=== PATIENT | female | born 1985 | race American Indian/Alaskan Native ===

== ENCOUNTER 2019-04-19 22:38 | Emergency (ER) | payer MEDICAID, OTHER ==
[2019-04-19 23:21] VITALS: BP 154/96
[2019-04-19] MEDS ORDERED: ASPIRIN PO ONE (23:22)
[2019-04-19 23:59] LABS: Basophils # (Auto) 0.1 K/mm3 (0.0-0.1); Basophils % (Auto) 0.4 % (0.0-1.8); Eosinophils # (Auto) 0.2 K/mm3 (0.0-0.4); Eosinophils % (Auto) 0.8 % (0.0-4.3); Hematocrit 37.9 % (30.3-42.9); Hemoglobin 12.1 gm/dl (10.1-14.3); Lymphocytes # (Auto) 1.8 K/mm3 (1.2-5.4); Lymphocytes % (Auto) 9.5 % (13.4-35.0); Mean Corpuscular HGB Conc 32 % (30-34); Mean Corpuscular Volume 74 fl (79-97); Monocytes # (Auto) 0.9 K/mm3 (0.0-0.8); Monocytes % (Auto) 4.5 % (0.0-7.3); Platelet Count 330 K/mm3 (140-440); Red Blood Count 5.15 M/mm3 (3.65-5.03)
[2019-04-20] MEDS ORDERED: TORADOL IV ONE (00:01)
[2019-04-20] MEDS ORDERED: DECADRON IV ONE (00:01)
[2019-04-20 00:17] LABS: BUN/Creatinine Ratio 16; Blood Urea Nitrogen 8 mg/dL (7-17); Hemolysis Index 1
[2019-04-20] MEDS ORDERED: K-DUR PO ONE (00:33)
--- NOTE | 2019-04-20 01:07 | XRay Report ---
CHEST 1 VIEW INDICATION: MAIN: Chest Pain 2 days. COMPARISON: None FINDINGS: Support devices: None. Heart: Within normal limits. Lungs/Pleura: No acute air space or interstitial disease. Additional findings: None. IMPRESSION: 1. No acute findings. Signer Name: Austin Subramanian MD Signed: 04/20/2019 1:03 AM Workstation Name: [id number]
[2019-04-20 02:21] LABS: Bilirubin,Urine NEG (Negative); Blood,Urine NEG (Negative); Color,Urine Yellow (Yellow); HCG Qualitative,Urine Negative (Negative); Mucus,Urine 1+ /HPF; Protein,Urine <15 mg/dL mg/dL (Negative); Urobilinogen,Urine < 2.0 mg/dL (<2.0)
--- NOTE | 2019-04-20 03:26 | Emergency Department Report ---
ED Back Pain/Injury HPI - General Chief Complaint: Extremity Injury, Lower Stated Complaint: LEG PAIN/NECK SWELLING Time Seen by Provider: 04/19/19 23:40 Source: patient Limitations: No Limitations - History of Present Illness MD Complaint: back pain, other (left lower leg pain, tingling and numbness) -: Sudden, week(s) (1) Similar Symptoms Previously: No Place: home Radiation: left leg Severity scale (0 -10): 8 Quality: burning, sharp, aching, tingling Consistency: constant Improves With: none Worsens With: none, movement, walking Context: unknown Associated Symptoms: denies other symptoms. denies: confusion, weakness, chest pain, numbness, difficulty walking, cough, difficulty urinating, diaphoresis, incontinence, fever/chills, constipation, headaches, loss of appetite, malaise, nausea/vomiting, rash, seizure, shortness of breath, syncope, other - Related Data Home Medications Medication Instructions Recorded Confirmed Last Taken valACYclovir [Valtrex] 500 mg PO TID 09/17/13 09/17/13 Unknown Previous Rx's Medication Instructions Recorded Last Taken Type HYDROcodone/APAP 5-325 [[place] 1 each PO Q6HR PRN #14 tablet 09/18/13 Unknown Rx 5-325 mg TAB] Ibuprofen [Motrin] 800 mg PO TID PRN #20 tablet 09/18/13 Unknown Rx Ibuprofen [Motrin 800 MG tab] 800 mg PO Q8H #21 tablet 08/18/14 Unknown Rx Oxycodone HCl/Acetaminophen 1 each PO Q6HR PRN #16 tablet 08/18/14 Unknown Rx [Percocet 10-325 mg] Naproxen [Naprosyn] 500 mg PO Q12H #20 tablet 04/20/19 Unknown Rx Potassium Bicarb/Citrate [Klor-Con] 25 meq PO QDAY #15 tablet.eff 04/20/19 Unknown Rx tiZANidine [Zanaflex 4mg TAB] 4 mg PO Q8H PRN #21 tablet 04/20/19 Unknown Rx Allergies Allergy/AdvReac Type Severity Reaction Status Date / Time codeine Allergy Itching Verified 08/18/14 15:36 ED Review of Systems ROS: Stated complaint: LEG PAIN/NECK SWELLING Other details as noted in HPI Constitutional: denies: chills, fever Eyes: denies: eye pain, eye discharge, vision change ENT: denies: ear pain, throat pain Respiratory: denies: cough, shortness of breath, wheezing Cardiovascular: denies: chest pain, palpitations Endocrine: no symptoms reported Gastrointestinal: denies: abdominal pain, nausea, diarrhea Genitourinary: denies: urgency, dysuria, discharge Musculoskeletal: back pain, arthralgia (left leg). denies: joint swelling Skin: denies: rash, lesions Neurological: denies: headache, weakness, paresthesias Psychiatric: denies: anxiety, depression Hematological/Lymphatic: denies: easy bleeding, easy bruising ED Past Medical Hx - Past Medical History Previous Medical History?: Yes Hx Hypertension: Yes Additional medical history: Genital Herpes. Fibroids - Surgical History Past Surgical History?: No Additional Surgical History: c section - Social History Smoking Status: Current Every Day Smoker Substance Use Type: None - Medications Home Medications: Home Medications Medication Instructions Recorded Confirmed Last Taken Type valACYclovir [Valtrex] 500 mg PO TID 09/17/13 09/17/13 Unknown History HYDROcodone/APAP 5-325 [[place] 1 each PO Q6HR PRN #14 tablet 09/18/13 Unknown Rx 5-325 mg TAB] Ibuprofen [Motrin] 800 mg PO TID PRN #20 tablet 09/18/13 Unknown Rx Ibuprofen [Motrin 800 MG tab] 800 mg PO Q8H #21 tablet 08/18/14 Unknown Rx Oxycodone HCl/Acetaminophen 1 each PO Q6HR PRN #16 tablet 08/18/14 Unknown Rx [Percocet 10-325 mg] Naproxen [Naprosyn] 500 mg PO Q12H #20 tablet 04/20/19 Unknown Rx Potassium Bicarb/Citrate [Klor-Con] 25 meq PO QDAY #15 tablet.eff 04/20/19 Unknown Rx tiZANidine [Zanaflex 4mg TAB] 4 mg PO Q8H PRN #21 tablet 04/20/19 Unknown Rx ED Physical Exam - General Limitations: No Limitations General appearance: alert, in no apparent distress - Head Head exam: Present: atraumatic, normocephalic, normal inspection - Eye Eye exam: Present: normal appearance, PERRL, EOMI Pupils: Present: normal accommodation - ENT ENT exam: Present: normal exam, normal orophraynx, mucous membranes moist, TM's normal bilaterally, normal external ear exam - Neck Neck exam: Present: normal inspection, full ROM. Absent: tenderness, lymphadenopathy - Respiratory Respiratory exam: Present: normal lung sounds bilaterally. Absent: respiratory distress, wheezes, rales, chest wall tenderness, accessory muscle use, decreased breath sounds - Cardiovascular Cardiovascular Exam: Present: normal rhythm, tachycardia, normal heart sounds. Absent: systolic murmur, diastolic murmur, rubs, gallop - GI/Abdominal GI/Abdominal exam: Present: soft, normal bowel sounds. Absent: tenderness, guarding, hyperactive bowel sounds, hypoactive bowel sounds, organomegaly - Rectal Rectal exam: Present: deferred - Extremities Exam Extremities exam: Present: normal inspection, tenderness (left lower leg), normal capillary refill. Absent: pedal edema, joint swelling, calf tenderness - Back Exam Back exam: Present: normal inspection, full ROM, tenderness (palpaple lumbosacral paraspinal musculoskeletal tenderness), muscle spasm, paraspinal tenderness. Absent: CVA tenderness (R), CVA tenderness (L), vertebral tenderness - Neurological Exam Neurological exam: Present: alert, oriented X3, CN II-XII intact, normal gait, reflexes normal - Psychiatric Psychiatric exam: Present: normal affect, normal mood - Skin Skin exam: Present: warm, dry, intact, normal color. Absent: rash ED Course Vital Signs 04/19/19 23:18 Temperature 99.1 F Pulse Rate 103 H Respiratory 20 Rate Blood Pressure 154/96 O2 Sat by Pulse 98 Oximetry - Reevaluation(s) Reevaluation #1: 04/20/19 03:24 This is a 33-year-old [place] female with a history of chronic low back pain that radiates to the left leg. In the ED, patient is alert and oriented 3, anxious under selected tachycardic and not in any distress. Labs were drawn and patient was treated for pain in the ED. On reevaluation, patient's pain is well controlled with medications. Lab test results were reviewed and showed acute leukocytoses of 19,500, and hypokalemia of 2.9 mmol per liter. Chest x-ray shows no acute cardiopulmonary abnormalities. Other lab test results are nonactionable. The patient's etiology for the leukocytosis is unknown but complaining her previous visits in this hospital, this patient usually has leukocytoses from 2014 visits, which was 12,500 at the time. She has not visited this ED or hospital for the last 5 years. Patient complained upon arrival to the hospitalist low back pain that radiates to the left leg. PT allergic the leukocytosis is unknown at this time. The etiology of her hypokalemia is due to the fact that the patient is on a diuretic blood pressure medicine. Patient was discharged home on anti-inflammatory pain medications and muscle relaxants, since the patient is currently on methadone for her chronic pain. Patient was advised to follow-up with her primary care physician in 5-7 days for reevaluation and subsequent referral to a rn internship. Patient was however advised to return to the ED immediately if symptoms get worse. ED Medical Decision Making - Lab Data Result diagrams: 04/19/19 23:36 04/19/19 23:36 - Radiology Data Radiology results: report reviewed, image reviewed Chest x-ray shows no acute cardiopulmonary abnormalities. - Medical Decision Making This is a 33-year-old [place] female with a history of chronic low back pain that radiates to the left leg. In the ED, patient is alert and oriented 3, an xious under selected tachycardic and not in any distress. Labs were drawn and patient was treated for pain in the ED. On reevaluation, patient's pain is well controlled with medications. Lab test results were reviewed and showed acute leukocytoses of 19,500, and hypokalemia of 2.9 mmol per liter. Chest x-ray shows no acute cardiopulmonary abnormalities. Other lab test results are nonactionable. The patient's etiology for the leukocytosis is unknown but complaining her previous visits in this hospital, this patient usually has leukocytoses from 2014 visits, which was 12,500 at the time. She has not visited this ED or hospital for the last 5 years. Patient complained upon arrival to the hospitalist low back pain that radiates to the left leg. PT allergic the leukocytosis is unknown at this time. The etiology of her hypokalemia is due to the fact that the patient is on a diuretic blood pressure medicine. Patient was discharged home on anti-inflammatory pain medications and muscle relaxants, since the patient is currently on methadone for her chronic pain. Patient was advised to follow-up with her primary care physician in 5-7 days for reevaluation and subsequent referral to a rn internship. Patient was however advised to return to the ED immediately if symptoms get worse. - Differential Diagnosis chronic low back pain; sciatica, chronic leukocytosis Critical care attestation.: If time is entered above; I have spent that time in minutes in the direct care of this critically ill patient, excluding procedure time. ED Disposition Clinical Impression: Acute exacerbation of chronic low back pain, Acute hypokalemia Chronic low back pain with left-sided sciatica Qualifiers: Back pain laterality: left Qualified Code(s): M54.42 - Lumbago with sciatica, left side; G89.29 - Other chronic pain Disposition: TO HOME OR SELFCARE Is pt being admited?: No Does the pt Need Aspirin: No Condition: Stable Instructions: Lumbar Radiculopathy (ED), Arthralgia (ED), Hypokalemia (ED), Muscle Spasm (ED) Additional Instructions: Take medications with food, drink plenty of fluids and follow-up with your primary care physician in 3-5 days for reevaluation. Return to the ED immediately if symptoms get worse. Prescriptions: Potassium Bicarb/Citrate [Klor-Con] 25 meq PO QDAY #15 tablet.eff Naproxen [Naprosyn] 500 mg PO Q12H #20 tablet tiZANidine [Zanaflex 4mg TAB] 4 mg PO Q8H PRN #21 tablet PRN Reason: Spasms Referrals: DOMO FARMER MD [Primary Care Provider] - 3-5 Days Time of Disposition: 03:34 Print Language: SWEDISH
== END 2019-04-20 04:02 | disposition home or self-care (01) ==
LOC: ED 22:38
DX: M54.42 Lumbago with sciatica, left side (principal); G89.29 Other chronic pain; E87.6 Hypokalemia; I10 Essential (primary) hypertension; F17.200 Nicotine dependence, unspecified, uncomplicated; Z88.5 Allergy status to narcotic agent
CPT/HCPCS: 36415; 71045; 80048; 81001; 81025; 84484; 84703; 85025; 93005; 93010; 96374; 96375; 99284; J1100; J1885

== ENCOUNTER 2020-09-02 16:31 | Emergency (ER) | payer OTHER ==
--- NOTE | 2020-09-02 19:12 | Emergency Department Report ---
Blank Doc - Documentation Documentation: 35-year-old female that presents with dizziness and heavy vaginal bleeding. This initial assessment/diagnostic orders/clinical plan/treatment(s) is/are subject to change based on patient's health status, clinical progression and re- assessment by fellow clinical providers in the ED. Further treatment and workup at subsequent clinical providers discretion. Patient/guardians urged not to elope from the ED as their condition may be serious if not clinically assessed and managed. Initial orders include: 1- Patient sent to [facility] for further evaluation and treatment 2- labs 3- UA
[2020-09-02 20:50] LABS: Basophils # (Auto) 0.1 K/mm3 (0.0-0.1); Basophils % (Auto) 0.6 % (0.0-1.8); Eosinophils # (Auto) 0.2 K/mm3 (0.0-0.4); Eosinophils % (Auto) 1.8 % (0.0-4.3); Lymphocytes # (Auto) 2.4 K/mm3 (1.2-5.4); Mean Corpuscular HGB Conc 32 % (30-34); Mean Corpuscular Volume 72 fl (79-97); Monocytes # (Auto) 0.3 K/mm3 (0.0-0.8); Monocytes % (Auto) 3.6 % (0.0-7.3); Platelet Count 449 K/mm3 (140-440); Red Blood Count 2.53 M/mm3 (3.65-5.03)
[2020-09-02 20:53] LABS: Red Cell Distribution Width 24.3 % (13.2-15.2)
[2020-09-02 20:56] LABS: Hematocrit 18.3 % (30.3-42.9); Hemoglobin 5.8 gm/dl (10.1-14.3)
[2020-09-02 20:59] LABS: Blood Urea Nitrogen 7 mg/dL (7-17); Calcium 9.2 mg/dL (8.4-10.2); Hemolysis Index 5
[2020-09-02 21:07] LABS: BUN/Creatinine Ratio 14
[2020-09-03] MEDS ORDERED: ACETAMINOPHEN 325 MG TAB PO ONE ×2 (05:06→08:37)
[2020-09-03 09:45] LABS: Hemoglobin 5.5 gm/dl (10.1-14.3)
[2020-09-03 09:46] LABS: Hematocrit 18.1 % (30.3-42.9)
[2020-09-03 10:03] LABS: Alanine Aminotransferase 13 units/L (7-56); Albumin 4.1 g/dL (3.9-5)
[2020-09-03 10:06] LABS: Bilirubin,Direct < 0.2 mg/dL (0-0.2)
[2020-09-03 11:55] LABS: Bilirubin,Urine NEG (Negative); Blood,Urine LG (Negative); Color,Urine Yellow (Yellow); Urobilinogen,Urine < 2.0 mg/dL (<2.0)
--- NOTE | 2020-09-03 12:24 | Emergency Department Report ---
<GIANFRANCO COYNE - Last Filed: 09/03/20 15:54> ED Female HPI - General Chief complaint: Vaginal Bleeding Stated complaint: FAINT/DIZZ/Y/BACK PAIN Time Seen by Provider: 09/02/20 19:12 Source: patient Mode of arrival: Ambulatory Limitations: No Limitations - History of Present Illness Initial comments: Patient is a 35-year-old female history of uterine fibroids who presents to the emergency department with complaint of vaginal bleeding over the past 1 month. She states that her symptoms have improved over the past 2 to 3 days however she has noted headache, dizziness. Patient was seen in triage and labs were obtained which notes a hemoglobin of 5.5. Patient states previously she has had low hemoglobins requiring blood transfusion. She states that although bleeding has slowed she is passing large clots. Patient had a negative beta hCG quant done during her emergency department visit. MD Complaint: vaginal bleeding - Related Data Home Medications Medication Instructions Recorded Confirmed Last Taken valACYclovir [Valtrex] 500 mg PO TID 09/17/13 09/17/13 Unknown Previous Rx's Medication Instructions Recorded Last Taken Type HYDROcodone/APAP 5-325 [[place] 1 each PO Q6HR PRN #14 tablet 09/18/13 Unknown Rx 5-325 mg TAB] Ibuprofen [Motrin] 800 mg PO TID PRN #20 tablet 09/18/13 Unknown Rx Ibuprofen [Motrin 800 MG tab] 800 mg PO Q8H #21 tablet 08/18/14 Unknown Rx Oxycodone HCl/Acetaminophen 1 each PO Q6HR PRN #16 tablet 08/18/14 Unknown Rx [Percocet 10-325 mg] Naproxen [Naprosyn] 500 mg PO Q12H #20 tablet 04/20/19 Unknown Rx Potassium Bicarb/Citrate [Klor-Con] 25 meq PO QDAY #15 tablet.eff 04/20/19 Unknown Rx tiZANidine [Zanaflex 4mg TAB] 4 mg PO Q8H PRN #21 tablet 04/20/19 Unknown Rx medroxyPROGESTERone ACETATE 10 mg PO QDAY 10 Days #10 tablet 09/03/20 Unknown Rx [Provera] Allergies Allergy/AdvReac Type Severity Reaction Status Date / Time codeine Allergy Itching Verified 08/18/14 15:36 ED Review of Systems Constitutional: denies: chills, fever Eyes: denies: eye discharge ENT: denies: dental pain Respiratory: denies: shortness of breath Cardiovascular: dyspnea on exertion Endocrine: no symptoms reported Gastrointestinal: abdominal pain Genitourinary: denies: dysuria Musculoskeletal: back pain Skin: denies: rash Neurological: headache Psychiatric: denies: anxiety, depression Hematological/Lymphatic: easy bleeding ED Past Medical Hx - Past Medical History Previous Medical History?: Yes Hx Hypertension: Yes Additional medical history: Genital Herpes. Fibroids - Surgical History Past Surgical History?: Yes Additional Surgical History: c section - Social History Smoking Status: Current Every Day Smoker Substance Use Type: None - Medications Home Medications: Home Medications Medication Instructions Recorded Confirmed Last Taken Type valACYclovir [Valtrex] 500 mg PO TID 09/17/13 09/17/13 Unknown History HYDROcodone/APAP 5-325 [[place] 1 each PO Q6HR PRN #14 tablet 09/18/13 Unknown Rx 5-325 mg TAB] Ibuprofen [Motrin] 800 mg PO TID PRN #20 tablet 09/18/13 Unknown Rx Ibuprofen [Motrin 800 MG tab] 800 mg PO Q8H #21 tablet 08/18/14 Unknown Rx Oxycodone HCl/Acetaminophen 1 each PO Q6HR PRN #16 tablet 08/18/14 Unknown Rx [Percocet 10-325 mg] Naproxen [Naprosyn] 500 mg PO Q12H #20 tablet 04/20/19 Unknown Rx Potassium Bicarb/Citrate [Klor-Con] 25 meq PO QDAY #15 tablet.eff 04/20/19 Unknown Rx tiZANidine [Zanaflex 4mg TAB] 4 mg PO Q8H PRN #21 tablet 04/20/19 Unknown Rx medroxyPROGESTERone ACETATE 10 mg PO QDAY 10 Days #10 tablet 09/03/20 Unknown Rx [Provera] ED Physical Exam - General Limitations: No Limitations General appearance: alert, in no apparent distress - Head Head exam: Present: atraumatic, normocephalic - Eye Eye exam: Present: normal appearance Pupils: Present: normal accommodation - ENT ENT exam: Present: normal exam - Neck Neck exam: Present: normal inspection - Respiratory Respiratory exam: Present: normal lung sounds bilaterally - Cardiovascular Cardiovascular Exam: Present: regular rate, normal rhythm, normal heart sounds - GI/Abdominal GI/Abdominal exam: Present: soft. Absent: distended, tenderness - Rectal Rectal exam: Present: deferred - Extremities Exam Extremities exam: Present: normal inspection - Back Exam Back exam: Present: normal inspection - Neurological Exam Neurological exam: Present: alert, oriented X3 - Psychiatric Psychiatric exam: Present: normal affect - Skin Skin exam: Present: warm, dry, intact ED Course - Reevaluation(s) Reevaluation #1: 09/03/20 15:55 Patient complains of headache, is receiving Toradol, Compazine, Benadryl. Patient also states that she is on methadone. ED Medical Decision Making - Lab Data Result diagrams: 09/03/20 08:45 09/02/20 20:09 - Medical Decision Making Patient is a 35-year-old female with past medical history of uterine fibroids requiring blood transfusion secondary to heavy bleeding who presents to emergency department with complaint of bleeding from the past 1 month. Patient reports that she has had a decrease in the amount of blood over the past 2 to 3 days but she noted feeling tired, having a headache and some dizziness. Patient's hemoglobin was noted to be 5.5. Plan for patient to receive 2 units of packed red blood cells. We will recheck patient's hemoglobin after the 2 units to ensure it is above 8. Patient will then be discharged home with prescriptions for her hormone therapy and follow-up with [facility]. Patient states that she does not want a speculum exam done at this time. ED Disposition Clinical Impression: Uterine fibroid, Vaginal bleeding, Acute blood loss anemia, Encounter for blood transfusion Disposition: - TO HOME OR SELFCARE Condition: Stable Instructions: Blood Transfusion, Adult, [id number], Abnormal Uterine Bleeding, Blood Transfusion, Adult, Care After, [id number] Prescriptions: medroxyPROGESTERone ACETATE [Provera] 10 mg PO QDAY 10 Days #10 tablet Referrals: PRIMARY CARE, [Primary Care Provider] - 3-5 Days MARIE PAULINO MD [Staff Physician] - 3-5 Days RAJI JENKINS MD [Staff Physician] - 3-5 Days RUSS QUEEN MD [Staff Physician] - 3-5 Days Forms: Work/School Release Form(ED) <ZAIN GUSMAN - Last Filed: 09/03/20 18:21> ED Review of Systems ROS: Stated complaint: FAINT/DIZZ/Y/BACK PAIN Other details as noted in HPI ED Course Vital Signs 09/02/20 09/02/20 09/03/20 17:07 22:06 08:38 Temperature 97.9 F 98 F 97.7 F Pulse Rate 82 85 83 Respiratory 18 18 18 Rate Blood Pressure 153/88 147/90 Blood Pressure 143/80 [Right] O2 Sat by Pulse 100 100 100 Oximetry 09/03/20 09/03/20 09/03/20 12:32 12:45 13:00 Temperature Pulse Rate 74 Respiratory 21 Rate Blood Pressure 131/76 131/76 Blood Pressure [Right] O2 Sat by Pulse 100 100 Oximetry 09/03/20 09/03/20 09/03/20 13:47 13:51 15:01 Temperature 98.1 F 97.9 F Pulse Rate 86 80 Respiratory 18 18 18 Rate Blood Pressure 142/82 123/72 Blood Pressure [Right] O2 Sat by Pulse 100 100 Oximetry 09/03/20 09/03/20 15:48 17:29 Temperature 98.1 F Pulse Rate 88 Respiratory 18 16 Rate Blood Pressure Blood Pressure 132/81 [Right] O2 Sat by Pulse 100 100 Oximetry ED Medical Decision Making - Lab Data Result diagrams: 09/03/20 17:45 09/02/20 20:09 - Medical Decision Making Patient signed out to me by previous provider Dr. Coyne. Repeat hemoglobin currently 8.2 with normal vital signs. Patient will be discharged as per initial provider plan Critical care attestation.: If time is entered above; I have spent that time in minutes in the direct care of this critically ill patient, excluding procedure time. ED Disposition Is pt being admited?: No Time of Disposition: 18:21
[2020-09-03] MEDS ORDERED: SODIUM CHLORIDE 0.9% 500 ML 500 ML IV ONE ×2 (12:30→13:45)
[2020-09-03] MEDS ORDERED: KETOROLAC 30 MG/1 ML INJ IV ONE (12:45)
--- NOTE | 2020-09-03 13:55 | Ultrasound Report ---
ULTRASOUND PELVIS INDICATION / CLINICAL INFORMATION: heavy vaginal bleeding; fibroids. TECHNIQUE: Transabdominal. Duplex Color Doppler used: Yes. COMPARISON: Ultrasound from 08/18/2014 FINDINGS: UTERUS: The uterus measures 9.2 x 3.8 cm cm. The uterus is heterogeneous with several myometrial mas ses, compatible with uterine fibroids. Prominent fibroid is located along the anterior uterine fundus , measuring 4.9 x 3 x 3.4 cm. Additional partially exophytic fibroid is present along the posterior u terine fibroid, measuring 4.8 x 2.0 x 5.2 cm. The endometrial stripe measures 0.7 cm. RIGHT ADNEXA: Right ovary measures 5.8 x 2.6 x 7.0 cm. No suspicious cystic or solid mass. Normal col or Doppler blood flow. LEFT ADNEXA: The left ovary is not visualized. No cystic or solid mass in the left adnexa. FREE FLUID: None. ADDITIONAL FINDINGS: None. IMPRESSION: 1. Fibroid uterus, as above. 2. Nonvisualization of the left ovary. Unremarkable sonographic appearance of the right ovary. Signer Name: Corey Bernal MD Signed: 09/03/2020 1:50 PM Workstation Name: [id number]
[2020-09-03] MEDS ORDERED: diphenhydrAMINE 50 MG/ML VIAL IV ONE (15:18)
[2020-09-03] MEDS ORDERED: POTASSIUM CHLORIDE ER 20 MEQ TAB PO ONE (15:55)
[2020-09-03] MEDS ORDERED: PROCHLORPERAZINE EDISYLATE 10 MG/2 ML VIAL IV SCH (16:00)
[2020-09-03] MEDS ORDERED: SODIUM CHLORIDE 0.9% 500 ML 500 ML ONE (16:18)
[2020-09-03 17:30] VITALS: BP 132/81
[2020-09-03 18:01] LABS: Hematocrit 26.1 % (30.3-42.9); Hemoglobin 8.2 gm/dl (10.1-14.3)
== END 2020-09-03 18:42 | disposition home or self-care (01) ==
LOC: ED 16:31
DX: D25.9 Leiomyoma of uterus, unspecified (principal); D62 Acute posthemorrhagic anemia; T80.92XA Unspecified transfusion reaction, initial encounter; I10 Essential (primary) hypertension; F17.200 Nicotine dependence, unspecified, uncomplicated; Z79.899 Other long term (current) drug therapy; Z88.6 Allergy status to analgesic agent
CPT/HCPCS: 36415; 36430; 76856; 80048; 80076; 81001; 84702; 85014; 85018; 85025; 86850; 86900; 86901; 86920; 96374; 96375; 99284; J0780; J1200; J1885; J7040; P9016